=== PATIENT | male | born 1970 | race Caucasian/White ===

== ENCOUNTER 2023-01-22 14:19 | Outpatient (CLI) | payer OTHER ==
[2023-01-22 15:03] LABS: #Basophils 0.1 10x3/uL (0.0-0.2); #Eosinphils 0.1 10x3/uL (0.0-0.5); #Monocytes 0.7 10x3/uL (0.0-1.1); #Neutrophils 4.2 10x3/uL (1.5-8.4); %Basophils 0.6 % (0.0-2.0); %Lymphocytes 34.9 % (18.0-47.0); %Monocytes 9.3 % (0.0-10.0); %Neutrophils 53.9 % (40.0-75.0); Hemoglobin 14.2 g/dL (13.5-17.5); Mean Corpuscular HGB CONC 31.6 g/dL (32.0-36.0); Mean Corpuscular Hemoglobin 27.9 pg (27.0-33.0); Mean Corpuscular Volume 88.4 fl (81.2-95.1); Mean Platelet Volume 9.2 fl (7.4-10.4); Platelet Count 270 10x3/uL (150-450); Red Blood Cell (RBC) Count 5.09 10x6/uL (4.32-5.72); White Blood Cell (WBC) Count 7.8 10x3/uL (3.5-10.5)
[2023-01-22 15:18] LABS: ALT (SGPT) 16 U/L (8-55); AST (SGOT) 14 U/L (5-34); Albumin 4.5 g/dL (3.5-5.0); Alkaline Phosphatase 89 U/L (40-110); Anion Gap 14 mmol/L (10-20); BUN (Urea Nitrogen) 15 mg/dL (8.4-25.7); Bilirubin, Total 0.5 mg/dL (0.2-1.2); Calc. Creatinine Clearance 0 mL/min (70-130); Calcium 9.7 mg/dL (7.8-10.44); Carbon Dioxide 29 mmol/L (22-29); Chloride 102 mmol/L (98-107); Estimated GFR 66; Globulin 4.5 g/dL (2.4-3.5); Glucose 80 mg/dL (70-105); Potassium 4.6 mmol/L (3.5-5.1); Sodium 140 mmol/L (136-145)
== END 2023-01-22 14:20 | disposition home or self-care (01) ==
LOC: LABBT 14:19
PROVIDERS: ATTEND Surgery
DX: Z01.818 Encounter for other preprocedural examination (principal); K60.3 Anal fistula
CPT/HCPCS: 80053; 85025; 93005; 93010

== ENCOUNTER 2023-01-24 07:10 | Day surgery (SDC) | payer OTHER ==
[2023-01-22 14:51] VITALS: BMI 25.8
[2023-01-24] MEDS ORDERED: fentaNYL PF 100 MCG/2 ML SYRINGE ONE (08:48)
[2023-01-24] MEDS ORDERED: EPINEPHrine 1 MG/ML AMP ONE (08:51)
[2023-01-24] MEDS ORDERED: Bupivacaine PF 0.5% 30 ML VIAL ONE (08:51)
[2023-01-24] MEDS ORDERED: Bacitracin Zinc Ointment 30 gm TUBE ONE (08:51)
[2023-01-24] MEDS ORDERED: Lidocaine 2% PF 5 ML VIAL ONE (08:51)
[2023-01-24] MEDS ORDERED: Methylene Blue 50 MG/10 ML AMPUL ONE (08:51)
[2023-01-24] MEDS ORDERED: Sodium Chloride 0.9% 100 ML ONE (08:57)
[2023-01-24] MEDS ORDERED: CEFAZOLIN 2 GM VIAL ONE (08:57)
[2023-01-24] MEDS ORDERED: PROPOFOL 200 MG/20 ML VIAL ONE (09:10)
[2023-01-24] MEDS ORDERED: Dexamethasone 20 MG/5 ML VIAL ONE (09:10)
[2023-01-24] MEDS ORDERED: Lidocaine 1% PF 5 ML VIAL ONE (09:10)
[2023-01-24] MEDS ORDERED: Ondansetron PF 4 MG/2 ML Vial ONE (09:10)
== END 2023-01-24 11:43 | disposition home or self-care (01) ==
LOC: SDC 07:10
PROVIDERS: ATTEND Surgery
PROC: 0D8R0ZZ Division of Anal Sphincter, Open Approach (ICD-10-PCS; principal; 2023-01-24)
DX: K60.3 Anal fistula (principal); B20 Human immunodeficiency virus [HIV] disease; Z79.899 Other long term (current) drug therapy
CPT/HCPCS: J0171; J1100; J2001; J2405; J2704; J3490; Q9968; S0020